=== PATIENT | female | born 1965 | race Hispanic/Latino ===

== ENCOUNTER 2023-11-15 20:01 | Emergency (ER) | payer OTHER, SELFPAY ==
[2023-11-15 20:03] VITALS: BP 136/96
[2023-11-15 20:27] VITALS: BP 138/86
[2023-11-15 20:53] LABS: Glucose - Point of Care 105 mg/dl (70-99)
[2023-11-15 21:09] VITALS: BP 137/78
[2023-11-15 21:19] LABS: % Immature Granulocytes 0.4 % (0-0.5); % Lymphocytes 28.2 % (20.5-51.1); % Monocytes 6.4 % (1.7-9.3); Absolute Basophils 0.1 10^3/uL (0-0.2); Absolute Eosinophils 0.4 10^3/uL (0-0.7); Absolute Lymphocytes 2.6 10^3/uL (1.2-3.4); Absolute Monocytes 0.6 10^3/uL (0.1-0.6); Absolute Neutrophils 5.6 10^3/uL (1.4-6.5); Hematocrit 40.4 % (37.0-47.0); Hemoglobin 14.2 g/dL (12.0-16.0); Mean Corp Hgb Conc. 35.1 g/dL (33.0-37.0); Mean Corpuscular Hgb 28.6 pg (27.0-31.0); Mean Corpuscular Volume 81.5 fL (81.0-99.0); Mean Platelet Volume 11.8 fL (7.4-10.4); Nucleated Red Blood Cells % 0 %; Platelet Count 269 10^3/uL (130-400); Red Blood Cell Count 4.96 10^6/uL (4.20-5.40); Red Cell Dist. Width 13.2 % (11.5-14.5); White Blood Cell Count 9.3 10^3/uL (4.8-10.8)
[2023-11-15 21:34] LABS: ALT (SGPT) 25 U/L (0-35); AST (SGOT) 32 U/L (14-36); Albumin 4.7 g/dl (3.5-5.0); Alkaline Phosphatase 113 U/L (38-126); Blood Urea Nitrogen 15 mg/dl (7-17); Calcium 9.7 mg/dl (8.4-10.2); Carbon Dioxide 24 mmol/L (22-30); Chloride 102 mmol/L (98-107); Glucose 109 mg/dl (70-99); Potassium 4.5 mmol/L (3.5-5.1); Sodium 134 mmol/L (135-145); Total Protein 7.5 g/dl (6.3-8.2); eGFR > 60.00
--- NOTE | 2023-11-15 21:43 | ED.GENMED ---
History of Present Illness
General
Chief Complaint: Visual Problem
Source: patient
Exam Limitations: none
Time Seen by Provider: 11/15/23 21:04
Nursing documentation reviewed up to this point in time: agreed with
Travel History
Have you had any contact with someone who has COVID-19?: No
Do you have any symptoms of coronavirus? Fever > 100 degrees, chills, cough, shortness of breath, sore throat, loss of taste or smell, muscle aches, or headache?: No
History of Present Illness
History of Present Illness:
58-year-old female hypertensive goes to obesity clinic, recently started on metformin last day afterward she had fatigue and swollen legs, which improved that she had a headache, today while driving she saw black nearly lost her vision
lasted about an hour was in both eyes tells me she was on the highway driving in [place] she was able to drive to work although she was 20 minutes late she notes feeling better, no slurred speech no arm or leg weakness no nausea vomiting no chest
pain, recently told that she was a diabetic thus metformin was started, she did not eat much today just today-just 1 egg for breakfast and another 1 later in the day
Past History
Past History
ED Past Medical History: HTN and Hypercholesterolemia
ED Past Surgical History: Negative Cardiac
Social History
Tobacco: Non-smoker
Alcohol: None
Drug: None
Living: with family
Employment: Employed
Family History
Family History: Other (Noncontributory)
Review of Systems
Review of Systems
All Other Systems: ROS reviewed and negative except as documented in HPI and ROS
Constitutional: Reports fatigue; Denies fever
EENT: Reports no symptoms
Respiratory: Reports no symptoms
Cardiac: Reports no symptoms
ABD/GI: Reports no symptoms
: Reports no symptoms
Musculoskeletal: Reports muscle stiffness
Neurological: Reports headache and other (Vision loss)
Endocrine: Reports no symptoms
Hematologic/Lymphatic: Reports no symptoms
Phy Exam
Physical Exam
Physical Exam:
Physical Exam
General: no apparent distress, not acutely ill
Neck: No jaundice
Heart: s1/s2 regular rate and rhythm, no murmur. equal radial pulses.
Lungs: no acute respiratory distress. clear bilaterally
Abdomen: Nontender
Neuro: alert and oriented. no focal neurological deficits normal finger-nose no pronator drift no visual field cut
Skin: no rash
Psychiatric: well kept. interactive and cooperative
Extremities: no edema. no calf tenderness.
Course
Orders/Labs/Results
Orders:
Orders
11/15/23 20:09
Electrocardiogram (*1) Urgent
Reason for Study: Other
Other Reason for Exam: VISION LOSS
EKG- Treatment ONCE
11/15/23 20:10
Accucheck Once [Bedside Glucose Monitoring-ONCE] As Directed
11/15/23 21:04
CMP [Comprehensive Metabolic Panel] Urgent
Complete Blood Count/With Diff Urgent
Creatine Phosphokinase Urgent
Comment: ADD ON
11/15/23 21:20
CT Head W/o Iv Contrast Urgent
Comment:
Reason For Exam: vision loss
11/15/23 21:29
Add On- LAB Urgent
Tests Added?: cpk
Abnormal Lab Results
11/15/23 11/15/23
20:52 21:04
MPV 11.8 H fL
(7.4-10.4)
Sodium 134 L mmol/L
(135-145)
Creatinine 0.5 L mg/dL
(0.6-1.0)
Glucose 109 H mg/dl
(70-99)
POC Glucose 105 H mg/dl
(70-99)
11/15/23 21:04
11/15/23 21:04
Vital Signs
Initial and Last Documented VS:
Initial Vital Signs
Temp Pulse Resp BP Pulse Ox
98 F 92 22 136/96 98
11/15/23 20:03 11/15/23 20:03 11/15/23 20:03 11/15/23 20:03 11/15/23 20:03
Last Documented Vital Signs
Temp Pulse Resp BP Pulse Ox
98 F 88 21 129/70 95
11/15/23 20:03 11/15/23 22:38 11/15/23 22:38 11/15/23 22:00 11/15/23 22:38
MDM/Problems Addressed
Differential Diagnosis Includes:
Adverse drug reaction hypoglycemia rapid dehydration CVA TIA
MDM/Problems Addressed:
Visual loss, muscle cramp
Chronic conditions affecting care: DM and HTN
Acute Exacerbation and/or Progression of Chronic Illness: DM and HTN
*EKG
Interpreted by ED Provider?: Yes
Interpretation: normal
Comparison EKG: no comparison EKG present
Heart Rate: 78
Rate: normal
Rhythm: sinus
Ischemia: non-specific ST changes
*Junior Assistant Manager Interpretation
Rate: normal
Interpretation: normal
Heart Rate: 78
Rhythm: sinus
*Critical Care Note
Total Time (30-74mins, 75-104mins- exclusive of procedures): Not Applicable
Update Note
Update Note:
Update, patient has nonfocal neurologic exam now symptoms appear to all started after she was started on metformin
? Symptoms could be due to hypoglycemia, EKG is noted will check CT of the head
11:[address] noted labs noted
Will have her hold her metformin until she sees her physicians
ED Attending Note
-
Portions of this chart may have been created with voice recognition software.� Occasional wrong word or��sound alike� substitutions may have occurred due to the inherent limitations of voice recognition software.
Discharge Plan
Departure
Patient Disposition: Home (Routine Discharge)
Date of Disposition: 11/15/23
Time of Disposition: 22:56
Patient with high blood pressure during this ER visit?: No
Condition: Good
Discharge Problem:
Change in vision
Instructions: Type 2 Diabetes (DC)
Prescriptions:
No Action
amlodipine 2.5 MG tablet
2.5 mg PO DAILY
olmesartan 20 MG tablet
20 mg PO DAILY
rosuvastatin 10 MG tablet
10 mg PO QPM
nebivolol 10 MG tablet
10 mg PO DAILY
hydrocodone-acetaminophen 1 TABLET tablet
1 tab PO Q4HPRN PRN (Reason: pain) Qty: 14 0RF
ibuprofen 600 MG tablet
600 mg PO Q6HPRN PRN (Reason: pain) Qty: 20 0RF
Referrals:
Mora Garcia PA-C [Family Provider] - Tomorrow
Activity Restrictions/Additional Instructions:
Call your primary care provider first thing in the morning to arrange follow-up and to
Discuss your symptoms
Stop metformin
Discussed this discussed this with your primary care provider and your obesity physician
Interventions
Interventions:
*Risk Screen - Suicide Last Done: 11/15/23 20:03
*General Assessment Last Done: 11/15/23 21:00
*Neglect/Abuse Screening Last Done: 11/15/23 20:03
ED-Skin Assessment Last Done: 11/15/23 21:00
ED- Pulmonary Assessment Last Done: 11/15/23 21:00
ED- Neurological Assessment Last Done: 11/15/23 21:00
ED-EENT Assessment Last Done: 11/15/23 21:00
ED- Cardiac Assessment Last Done: 11/15/23 21:00
ED Swallowing Screen Last Done: 11/15/23 21:58
[2023-11-15 22:00] VITALS: BP 129/70
[2023-11-15 22:02] LABS: Creatine Phosphokinase 52 U/L (30-135)
[2023-11-15 23:00] VITALS: BP 121/81
[2023-11-15] MEDS: TYLENOL 650 MG PO (23:04)
[2023-11-15] MEDS: ZOFRAN ODT (ORALLY DISINTEGRATING) 4 MG PO (23:05)
[2023-11-15 23:12] LABS: Glucose - Point of Care 124 mg/dl (70-99)
[2023-11-15 23:21] VITALS: BP 128/56
== END 2023-11-15 23:30 | disposition home or self-care (01) ==
LOC: EMR 20:01
PROVIDERS: Emergency Medicine; EMERGENCY PHYSICIAN Emergency Medicine; FAMILY PHYSICIAN Physician Assistant
DX: H53.9 Unspecified visual disturbance (principal); I10 Essential (primary) hypertension; E11.9 Type 2 diabetes mellitus without complications
CPT/HCPCS: 99285; 70450; 80053; 82550; 82962; 85025; 93005

== ENCOUNTER → 2024-01-05 15:45 | Outpatient (REF) | payer OTHER, BC, SELFPAY | LOC: DHCBC HW 15:45 | PROVIDERS: ATTENDING PHYSICIAN Internal Medicine; FAMILY PHYSICIAN Physician Assistant | DX: R55 Syncope and collapse (principal); R94.31 Abnormal electrocardiogram [ECG] [EKG] | CPT/HCPCS: 93306 ==

== ENCOUNTER → 2024-01-06 11:43 | Outpatient (REF) | payer OTHER, BC, SELFPAY | LOC: DHCBC/DCA 11:43 | PROVIDERS: ATTENDING PHYSICIAN Internal Medicine; FAMILY PHYSICIAN Physician Assistant | DX: R94.31 Abnormal electrocardiogram [ECG] [EKG] (principal) | CPT/HCPCS: 78452; 93017; A9500; J2785 ==

== ENCOUNTER → 2024-01-07 10:02 | Outpatient (REF) | payer OTHER, BC, SELFPAY | LOC: RCS 10:02 | PROVIDERS: ATTENDING PHYSICIAN Internal Medicine; FAMILY PHYSICIAN Physician Assistant | DX: R55 Syncope and collapse (principal) | CPT/HCPCS: 93225; 93226 ==

== ENCOUNTER → 2024-10-31 13:00 | Outpatient (REF) | payer OTHER, BC, SELFPAY ==
[2024-10-31 14:54] LABS: Erythrocyte Sed Rate 20 mm/hour (0-20)
== END ==
LOC: REG 13:00
PROVIDERS: ATTENDING PHYSICIAN Physician Assistant Surgical; FAMILY PHYSICIAN Physician Assistant
DX: M25.561 Pain in right knee (principal)
CPT/HCPCS: 36415; 85652; 86140

== ENCOUNTER → 2024-11-09 10:10 | Outpatient (REF) | payer OTHER, BC, SELFPAY | LOC: RAD 10:10 | PROVIDERS: ATTENDING PHYSICIAN Physician Assistant Surgical; FAMILY PHYSICIAN Physician Assistant | DX: M25.561 Pain in right knee (principal) | CPT/HCPCS: 78315; A9503 ==

== ENCOUNTER 2025-01-02 18:40 | Outpatient (RCR) | payer OTHER, BC, SELFPAY | END 2025-01-02 23:59 | disposition home or self-care (01) | LOC: RPT 18:40 | PROVIDERS: ATTENDING PHYSICIAN Physician Assistant Surgical; FAMILY PHYSICIAN Physician Assistant | DX: M25.552 Pain in left hip (principal); M25.562 Pain in left knee; M17.11 Unilateral primary osteoarthritis, right knee; Z73.6 Limitation of activities due to disability; R26.2 Difficulty in walking, not elsewhere classified; M62.81 Muscle weakness (generalized); M25.561 Pain in right knee; R26.89 Other abnormalities of gait and mobility; Z96.652 Presence of left artificial knee joint | CPT/HCPCS: 97110; 97162 ==

== ENCOUNTER 2025-05-22 05:21 | Emergency (ER) | payer OTHER, BC, SELFPAY ==
[2025-05-22 05:26] VITALS: BP 113/74
[2025-05-22 05:59] VITALS: BMI 30.7
--- NOTE | 2025-05-22 06:00 | ED.GENMED ---
History of Present Illness
General
Chief Complaint: Abdominal Symptoms
Time Seen by Provider: 05/22/25 05:57
History of Present Illness
History of Present Illness:
PAST MEDICAL HISTORY AND REVIEW OF OLD RECORDS
- The patient has history of high blood pressure, GERD, is a diabetic.
Note:
CHIEF COMPLAINT(S)
Diarrhea and vomiting for three weeks.
HISTORY OF PRESENT ILLNESS
The patient is a 56-year-old female who presents with diarrhea and vomiting, which started three weeks ago. The patient reports that the symptoms began after an increase in the dosage of her medication Monjaro one month ago, prescribed for weight
loss. Initially, the patient experienced constipation before the dosage increase, but subsequently developed diarrhea and vomiting. She initially thought it was food poisoning or a virus. The symptoms have been affecting her ability to work due to
the need for frequent bathroom visits. She describes episodes of feeling warm, sweating, and then feeling improved, only for nausea, stomachache, and diarrhea to return after eating.
The patient reports dehydration and current nausea. She denies any abdominal surgeries and is scheduled for an endoscopy in five days with Dr. Sosa.
EXAM
- General: Well appearing in no significant distress but appears somewhat weak
- HEENT: Moist oral mucosa
- Cardiovascular: No murmurs, normal heart rate, regular rhythm, No chest wall tenderness
- Pulmonary: No respiratory distress, breath sounds are clear and equal
- Abdomen: Soft with no peritoneal signs, no tenderness
- Neurologic: Excellent strength all extremities, no coordination deficits
- Psychiatric: Appropriate mental status, normal insight and judgement
- Extremities: Nontender, no edema, moves all extremities equally
- Skin: No rash, no lesions
PLAN
1. Administer intravenous fluids to address dehydration.
2. Provide antiemetic medication for nausea.
3. Perform blood work to assess the patients condition.
4. Administer Famotidine for symptomatic relief.
5. Re-evaluate the patient following interventions.
DIFFERENTIAL DIAGNOSIS
The Differential Diagnosis includes, in no particular order and is not limited to:
1. Medication side effects from Monjaro.
2. Infectious gastroenteritis.
3. Irritable bowel syndrome.
4. Inflammatory bowel disease.
5. Gastritis or peptic ulcer disease.
6. Pancreatitis.
7. Hyperthyroidism.
8. Food intolerance or allergy.
9. Functional gastrointestinal disorder.
10. Stress-related gastrointestinal symptoms.
RADIOLOGY
- Considered CT of the abdomen pelvis however the patient has no tenderness on exam
LABS
- White count 13.3, hemoglobin normal, chemistries and lipase unremarkable
UPDATE
- I reevaluated the patient at 7:05 AM and the patient feels some improvement after fluids, Zofran, and Pepcid were given. Other than mild leukocytosis, labs are unremarkable and she has no abdominal tenderness on examination. She was given a
second liter of fluid.
Note:
CHIEF COMPLAINT(S)
Diarrhea and vomiting for three weeks.
HISTORY OF PRESENT ILLNESS
The patient is a 56-year-old female who presents with diarrhea and vomiting, which started three weeks ago. The patient reports that the symptoms began after an increase in the dosage of her medication Monjaro one month ago, prescribed for weight
loss. Initially, the patient experienced constipation before the dosage increase, but subsequently developed diarrhea and vomiting. She initially thought it was food poisoning or a virus. The symptoms have been affecting her ability to work due to
the need for frequent bathroom visits. She describes episodes of feeling warm, sweating, and then feeling improved, only for nausea, stomachache, and diarrhea to return after eating.
The patient reports dehydration and current nausea. She denies any abdominal surgeries and is scheduled for an endoscopy in five days with Dr. Sosa. The patient has not had an endoscopy or colonoscopy in the past.
PLAN
1. Administer intravenous fluids to address dehydration.
2. Provide antiemetic medication for nausea.
3. Perform blood work to assess the patients condition.
4. Administer Famotidine for symptomatic relief.
5. Re-evaluate the patient following interventions.
DIFFERENTIAL DIAGNOSIS
The Differential Diagnosis includes, in no particular order and is not limited to:
1. Medication side effects from Monjaro.
2. Infectious gastroenteritis.
3. Irritable bowel syndrome.
4. Inflammatory bowel disease.
5. Gastritis or peptic ulcer disease.
6. Pancreatitis.
7. Hyperthyroidism.
8. Food intolerance or allergy.
9. Functional gastrointestinal disorder.
10. Stress-related gastrointestinal symptoms.
Disposition:
SUMMARY OF ENCOUNTER
The patient, a 56-year-old female, presented to the emergency department with diarrhea and vomiting persisting for three weeks, following an increase in the dosage of a weight loss medication, Monjaro. Her symptoms included episodes of feeling warm,
sweating, nausea, stomachache, and diarrhea that returned after eating. Upon evaluation, laboratory tests showed a slightly elevated white blood cell count, indicating mild leukocytosis, potentially associated with a viral infection or related to
the medication. There were no signs of pancreatitis or liver issues. The patient showed low blood pressure, but it was monitored and observed to trend upwards following administration of IV fluids. Two liters of fluids were ordered to address her
dehydration. Additionally, a prescription for ondansetron (Zofran) was sent to her pharmacy for nausea, and the patient was advised to take famotidine (Pepcid) or similar rajf-umn-sxjxpfi medications for stomach relief.
DISPOSITION
The patient was discharged with outpatient management instructions.
ASSESSMENT
Possible medication side effects from Monjaro, leading to gastrointestinal symptoms. The differential includes mild leukocytosis possibly related to a viral infection.
EMERGENCY TREATMENTS ADMINISTERED
- Two liters of intravenous fluids for dehydration.
PLAN
1. Complete administration of IV fluids for dehydration.
2. Begin prescribed ondansetron (Zofran) for nausea.
3. Consider malf-ozo-cqmnvty famotidine (Pepcid) or similar medication for stomach relief.
4. Reassess blood pressure and overall symptoms improvement upon receiving fluids.
INDEPENDENT REVIEW OF LABS AND INTERPRETATION OF TESTS
My independent review of CBC indicates mild leukocytosis. No signs of pancreatitis or liver dysfunction were observed.
MEDICATION RECONCILIATION
1. Ondansetron (Zofran) prescribed for nausea management.
2. Consider using famotidine (Pepcid) or similar for stomach relief.
MEDICAL DECISION MAKING
- Complexity of Data Reviewed: Chronic conditions affecting care include the patients weight management with Monjaro. Differential diagnoses considered: medication side effects, infectious gastroenteritis, irritable bowel syndrome, inflammatory
bowel disease, gastritis or peptic ulcer disease, pancreatitis, hyperthyroidism, food intolerance or allergy, functional gastrointestinal disorder, stress-related gastrointestinal symptoms.
- Data:
Category 1:
- Labs ordered and reviewed include CBC with noted leukocytosis indicating possible mild viral infection.
- Risk:
Consideration of Admission/Observation: Escalation of care including admission/observation was considered given the complexity and risk of the patients presenting complaint, exam findings, and underlying condition. However, ultimately, the patient
is safe for outpatient management with close follow-up. Reasoning includes reassuring workup with no acute life/organ-threatening processes detected, symptoms are manageable upon reevaluation, and the patient is reliable for follow-up.
DIAGNOSIS
- Possible medication-induced gastrointestinal symptoms, ICD-10: T50.995A (Adverse effect of other drugs, initial encounter).
- Mild leukocytosis, likely stress or viral-related, ICD-10: R16.2 (Leukocytosis, unspecified).
Past History
Past History
ED Past Medical History: HTN and Hypercholesterolemia
ED Past Surgical History: Negative Cardiac
Social History
Tobacco: Non-smoker
Alcohol: None
Drug: None
Living: with family
Employment: Employed
Family History
Family History: Other (Noncontributory)
Phy Exam
Physical Exam
Physical Exam:
See HPI
Course
Orders/Labs/Results
Orders:
Orders
05/22/25 06:01
0.9% Sodium Chloride 1000 ml [Nss] 1,000 ml IV BOLUS
05/22/25 06:05
Basic Metabolic Panel Urgent
Complete Blood Count/With Diff Urgent
Lipase Urgent
05/22/25 06:08
Famotidine [Pepcid] 20 mg IV NOW STA
05/22/25 06:10
Ondansetron Injectable [Zofran] 4 mg .ROUTE .STK-MED ONE
Ondansetron Injectable [Zofran] 4 mg IV NOW STA
05/22/25 07:02
0.9% Sodium Chloride 1000 ml [Nss] 1,000 ml IV BOLUS
Abnormal Lab Results
05/22/25
06:05
WBC 13.3 H 10^3/uL
(4.8-10.8)
MPV 11.3 H fL
(7.4-10.4)
Abs Immat Gran (auto) 0.1 H 10^3/uL
(0-0.05)
Absolute Neuts (auto) 10.7 H 10^3/uL
(1.4-6.5)
Absolute Monos (auto) 1.3 H 10^3/uL
(0.1-0.6)
Immature Gran % 0.8 H %
(0-0.5)
Neutrophils % 80.1 H %
(42.2-75.2)
Lymphocytes % 8.6 L %
(20.5-51.1)
Monocytes % 9.9 H %
(1.7-9.3)
Glucose 105 H mg/dl
(70-99)
05/22/25 06:05
05/22/25 06:05
Vital Signs
Blood pressure: 103/62
Initial and Last Documented VS:
Initial Vital Signs
Temp Pulse Resp BP Pulse Ox
37.5 C 104 20 113/74 95
05/22/25 05:26 05/22/25 05:26 05/22/25 05:26 05/22/25 05:26 05/22/25 05:26
Last Documented Vital Signs
Temp Pulse Resp BP Pulse Ox
37.5 C 92 26 103/62 95
05/22/25 05:26 05/22/25 07:30 05/22/25 07:30 05/22/25 07:26 05/22/25 06:01
*Pulse Oximetry
SaO2: 95
Oxygen Mode of Delivery: Room air
Patient hypoxic: no
*Critical Care Note
Total Time (30-74mins, 75-104mins- exclusive of procedures): Not Applicable
ED Attending Note
-
Portions of this chart may have been created with voice recognition software.� Occasional wrong word or��sound alike� substitutions may have occurred due to the inherent limitations of voice recognition software.
Discharge Plan
Departure
Patient Disposition: Home (Routine Discharge)
Date of Disposition: 05/22/25
Time of Disposition: 07:53
Patient with high blood pressure during this ER visit?: Yes
Discharge Problem:
Adverse drug effect
Instructions: Dehydration in adults - ED discharge instructions
Prescriptions:
New
ondansetron HCl 4 mg tablet
4 mg PO Q8H PRN (Reason: nausea and vomiting) Qty: 12 0RF
No Action
amlodipine 2.5 MG tablet
2.5 mg PO DAILY
olmesartan 20 MG tablet
20 mg PO DAILY
rosuvastatin 10 MG tablet
10 mg PO QPM
nebivolol 10 MG tablet
10 mg PO DAILY
hydrocodone-acetaminophen 1 TABLET tablet
1 tab PO Q4HPRN PRN (Reason: pain) Qty: 14 0RF
ibuprofen 600 MG tablet
600 mg PO Q6HPRN PRN (Reason: pain) Qty: 20 0RF
Referrals:
Mora Garcia PA-C [Family Provider, Internal Medicine]
Activity Restrictions/Additional Instructions:
I suspect that you were dehydrated. We gave you 2 L of IV fluid. Return here if worse or other concerns. Your blood work shows normal kidney function and normal pancreas number. Your white blood cell count is slightly high at 13.3. Talk to your
doctors about resuming Mounjaro. I am sending a prescription for Zofran to your pharmacy. You could also try ersm-ajp-swfadti Pepcid as needed and jnzg-uax-fzodekk omeprazole daily for the next 2 weeks.
Interventions
Interventions:
*Risk Screen - Suicide Last Done: 05/22/25 05:26
*General Assessment Last Done: 05/22/25 05:26
*Neglect/Abuse Screening Last Done: 05/22/25 05:26
*ED- Fall Risk Assessment Last Done: 05/22/25 05:26
*ED COVID-19 Vaccine History Last Done: 05/22/25 05:26
*Nursing Disposition Last Done: 05/22/25 09:15
N[place]-Rzpasd-Qiryiwatqx Assessment Last Done: 05/22/25 06:17
Discharge Date and Time
Discharge Date/Time: 05/22/25 09:16
Print Language: BOTSWANAN
[2025-05-22 06:02] VITALS: BP 100/64
[2025-05-22] MEDS: NSS 1000 IV ×2 (06:08→07:07)
[2025-05-22] MEDS: PEPCID 20 MG IV (06:12)
[2025-05-22] MEDS: ZOFRAN 4 MG IV (06:12)
[2025-05-22 06:31] LABS: Hematocrit 38.1 % (37.0-47.0); Hemoglobin 12.8 g/dL (12.0-16.0); Mean Corp Hgb Conc. 33.6 g/dL (33.0-37.0); Mean Corpuscular Volume 83.0 fL (81.0-99.0); Nucleated Red Blood Cells % 0 %; Platelet Count 312 10^3/uL (130-400); Red Cell Dist. Width 13.8 % (11.5-14.5)
[2025-05-22 07:00] VITALS: BP 103/60
[2025-05-22 07:09] LABS: Blood Urea Nitrogen 10 mg/dl (7-17); Calcium 8.4 mg/dl (8.4-10.2); Carbon Dioxide 22 mmol/L (22-30); Chloride 104 mmol/L (98-107); Estimated Creatinine Clearance 89 ml/min; Glucose 105 mg/dl (70-99); Lipase 83 U/L (23-300); Sodium 137 mmol/L (135-145); eGFR > 60.00
== END 2025-05-22 09:16 | disposition home or self-care (01) ==
LOC: EMR 05:21
PROVIDERS: EMERGENCY PHYSICIAN Emergency Medicine; FAMILY PHYSICIAN Physician Assistant
DX: R19.7 Diarrhea, unspecified (principal); T38.3X5A Adverse effect of insulin and oral hypoglycemic [antidiabetic] drugs, initial encounter; E86.0 Dehydration; D72.829 Elevated white blood cell count, unspecified; E11.9 Type 2 diabetes mellitus without complications; I10 Essential (primary) hypertension; E78.00 Pure hypercholesterolemia, unspecified; K21.9 Gastro-esophageal reflux disease without esophagitis; Z79.85 Long-term (current) use of injectable non-insulin antidiabetic drugs
CPT/HCPCS: 99284; 96374; 96375; 96361 ×2; 80048; 83690; 85025

== ENCOUNTER 2025-05-27 06:26 | Day surgery (SDC) | payer OTHER, BC, SELFPAY | END 2025-05-27 12:52 | disposition home or self-care (01) | LOC: GI 06:26 | PROVIDERS: ATTENDING PHYSICIAN Student in an Organized Health Care Education/Training Program | DX: R12 Heartburn (principal); R14.0 Abdominal distension (gaseous); K22.10 Ulcer of esophagus without bleeding; K44.9 Diaphragmatic hernia without obstruction or gangrene; K25.9 Gastric ulcer, unspecified as acute or chronic, without hemorrhage or perforation; K31.89 Other diseases of stomach and duodenum | CPT/HCPCS: 43239; 88305; 88342 ==

== ENCOUNTER 2025-07-25 18:10 | Emergency (ER) | payer OTHER, BC, SELFPAY ==
[2025-07-25 18:15] VITALS: BP 128/85
[2025-07-25 18:31] LABS: Hematocrit 42.7 % (37.0-47.0); Hemoglobin 13.9 g/dL (12.0-16.0); Mean Corp Hgb Conc. 32.6 g/dL (33.0-37.0); Mean Corpuscular Volume 85.9 fL (81.0-99.0); Nucleated Red Blood Cells % 0 %; Platelet Count 255 10^3/uL (130-400); Red Cell Dist. Width 14.1 % (11.5-14.5)
[2025-07-25 18:52] LABS: ALT (SGPT) 109 U/L (0-35); AST (SGOT) 100 U/L (14-36); Albumin 4.4 g/dl (3.5-5.0); Alkaline Phosphatase 130 U/L (38-126); Blood Urea Nitrogen 22 mg/dl (7-17); Calcium 9.3 mg/dl (8.4-10.2); Carbon Dioxide 27 mmol/L (22-30); Chloride 108 mmol/L (98-107); Glucose 101 mg/dl (70-99); Lipase 404 U/L (23-300); Potassium 4.4 mmol/L (3.5-5.1); Sodium 141 mmol/L (135-145); Total Protein 7.0 g/dl (6.3-8.2); eGFR > 60.00
[2025-07-25 18:55] LABS: Troponin I < 0.012 ng/ml
[2025-07-25 20:05] VITALS: BP 122/72
[2025-07-25 22:08] LABS: Troponin I < 0.012 ng/ml
--- NOTE | 2025-07-25 22:26 | ED.GENMED ---
History of Present Illness
General
Chief Complaint: Chest Pain
Source: patient
Exam Limitations: none
Time Seen by Provider: 07/25/25 19:59
Nursing documentation reviewed up to this point in time: agreed with
History of Present Illness
History of Present Illness:
Patient to ED tonight with complaint of sharp electric like pain from epigastric area through left chest to left shoulder and down left arm. This occured a few times and then resolved but she reports feeling weak and tired. Brought self to ED for
eval. Denies fever/chills, recent illness. No n/v/d. No prior history of same. No SOB
Past History
Past History
ED Past Medical History: HTN and Hypercholesterolemia
ED Past Surgical History: Negative Cardiac
Social History
Tobacco: Non-smoker
Alcohol: None
Drug: None
Living: with family
Employment: Employed
Family History
Family History: Other (Noncontributory)
Review of Systems
Review of Systems
Allergies reviewed?: Yes
All Other Systems: ROS reviewed and negative except as documented in HPI and ROS
Constitutional: Reports no symptoms
EENT: Reports no symptoms
Respiratory: Reports no symptoms
Cardiac: Reports chest pain (sharp left chest pain)
ABD/GI: Reports other (sharp pain from epigastric to left shoulder and arm)
: Reports no symptoms
Musculoskeletal: Reports no symptoms
Skin: Reports no symptoms
Neurological: Reports no symptoms
Psychiatric: Reports no symptoms
Phy Exam
General Physical Exam
General Presentation: well appearing and mild distress
General age: appears stated age
General Skin: warm and dry
General Habitus: normal
General Mental: alert
Cardiovascular Exam
Cardiovascular Exam: regular rate/rhythm and no edema
Pulmonary Exam
Pulmonary Exam: lungs clear and no respiratory distress
Gastrointestinal Exam
Gastrointestinal Exam: normal bowel sounds, non tender and soft
Musculoskeletal Exam
Musculoskeletal Exam: full ROM and neuro vasc intact
Skin Exam
Skin Exam: normal color, warm/dry and no rash
Psychiatric Exam
Psychiatric Exam: normal mood/affect
Scores
Heart Score for Chest Pain Patients
STEMI patient?: Not applicable
Course
Orders/Labs/Results
Orders:
Orders
07/25/25 18:10
EKG [Electrocardiogram (*1)] Urgent
Reason for Study: Chest Pain
07/25/25 18:11
EKG- Treatment ONCE
07/25/25 18:24
Complete Blood Count/With Diff Urgent
Comprehensive Metabolic Panel Urgent
Lipase Urgent
Troponin I Urgent
07/25/25 20:19
US Abdomen Complete/Upper Urgent
Comment:
Reason For Exam: upper abd. pain, elevated LFTs
07/25/25 21:37
Troponin I Urgent
Abnormal Lab Results
07/25/25
18:24
MCHC 32.6 L g/dL
(33.0-37.0)
MPV 11.7 H fL
(7.4-10.4)
Absolute Monos (auto) 0.7 H 10^3/uL
(0.1-0.6)
Chloride 108 H mmol/L
(98-107)
BUN 22 H mg/dl
(7-17)
Glucose 101 H mg/dl
(70-99)
AST 100 H U/L
(14-36)
ALT 109 H U/L
(0-35)
Alkaline Phosphatase 130 H U/L
(38-126)
Lipase 404 H U/L
(23-300)
07/25/25 18:24
07/25/25 18:24
Vital Signs
Initial and Last Documented VS:
Initial Vital Signs
Temp Pulse Resp BP Pulse Ox
98.8 F 84 18 128/85 97
07/25/25 18:15 07/25/25 18:15 07/25/25 18:15 07/25/25 18:15 07/25/25 18:15
Last Documented Vital Signs
Temp Pulse Resp BP Pulse Ox
98.8 F 82 23 122/72 94
07/25/25 18:15 07/25/25 20:30 07/25/25 20:30 07/25/25 22:46 07/25/25 22:30
*Radiology
Radiology exam reviewed: radiology read reviewed
*Pulse Oximetry
SaO2: 94
Oxygen Mode of Delivery: Room air
Patient hypoxic: no
*Critical Care Note
Total Time (30-74mins, 75-104mins- exclusive of procedures): Not Applicable
Update Note
Update Note:
Patient to ED with electric shock type pain - epigastric thru to left shoulder and down left arm. Pain has resolved without interventiion. VSS, she remains afebrile. Labs reviewed, LFT mild elevation noted. US completed - fatty liver identified.
She remains awake and alert, in no distress. WIll discharge home and she willf ollo up with GI. Given instructions on s/s to return to ED and she is agreeable to plan.
ED Attending Note
-
Portions of this chart may have been created with voice recognition software.� Occasional wrong word or��sound alike� substitutions may have occurred due to the inherent limitations of voice recognition software.
Discharge Plan
Departure
Patient Disposition: Home (Routine Discharge)
Date of Disposition: 07/25/25
Time of Disposition: 22:22
Patient with high blood pressure during this ER visit?: No
Condition: Good
Covid-19: Not Applicable
Discharge Problem:
Chest pain
Instructions: Chest Pain PCP Follow Up
Prescriptions:
No Action
amlodipine 2.5 MG tablet
2.5 mg PO DAILY
olmesartan 20 MG tablet
20 mg PO DAILY
rosuvastatin 10 MG tablet
10 mg PO QPM
nebivolol 10 MG tablet
10 mg PO DAILY
hydrocodone-acetaminophen 1 TABLET tablet
1 tab PO Q4HPRN PRN (Reason: pain) Qty: 14 0RF
ibuprofen 600 MG tablet
600 mg PO Q6HPRN PRN (Reason: pain) Qty: 20 0RF
ondansetron HCl 4 mg tablet
4 mg PO Q8H PRN (Reason: nausea and vomiting) Qty: 12 0RF
Referrals:
Mora Garcia PA-C [Family Provider, Internal Medicine] - Follow up in 2-3 days
Joie Wilhelm MD [Active, Gastroenterology] - Call in 1-3 days for appt
Activity Restrictions/Additional Instructions:
As we discussed, mild elevation of your liver enzymes were noted tonight. The ultrasound is showing a fatty liver which may explain the elevation of your liver enzymes. It is important to continue to monitor your liver and the enzymes. Please
follow up with gastroenterology. Return to the emergency department immediately for any changes in/worsening of your symptoms.
Interventions
Interventions:
*Risk Screen - Suicide Last Done: 07/25/25 18:15
*General Assessment Last Done: 07/25/25 18:15
*Neglect/Abuse Screening Last Done: 07/25/25 18:15
*ED- Fall Risk Assessment Last Done: 07/25/25 22:51
*ED COVID-19 Vaccine History Last Done: 07/25/25 18:15
*ED Influenza Vaccine History Last Done: 07/25/25 18:15
*Nursing Disposition Last Done: 07/25/25 22:51
ED- Cardiac Assessment Last Done: 07/25/25 22:46
Discharge Date and Time
Discharge Date/Time: 07/25/25 22:52
Print Language: GAMBIAN
[2025-07-25 22:46] VITALS: BP 122/72
== END 2025-07-25 22:52 | disposition home or self-care (01) ==
LOC: EMR 18:10
PROVIDERS: Nurse Practitioner; EMERGENCY PHYSICIAN Emergency Medicine; FAMILY PHYSICIAN Physician Assistant
DX: R07.9 Chest pain, unspecified (principal); K76.0 Fatty (change of) liver, not elsewhere classified; I10 Essential (primary) hypertension; E78.00 Pure hypercholesterolemia, unspecified
CPT/HCPCS: 99284; 76700; 80053; 83690; 84484; 85025; 93005

== ENCOUNTER 2025-08-02 06:34 | Day surgery (SDC) | payer OTHER, BC, SELFPAY | END 2025-08-02 15:57 | disposition home or self-care (01) | LOC: GI 06:34 | PROVIDERS: ATTENDING PHYSICIAN Student in an Organized Health Care Education/Training Program; FAMILY PHYSICIAN Physician Assistant | DX: Z12.11 Encounter for screening for malignant neoplasm of colon (principal); R19.4 Change in bowel habit; K57.30 Diverticulosis of large intestine without perforation or abscess without bleeding; K44.9 Diaphragmatic hernia without obstruction or gangrene; K31.89 Other diseases of stomach and duodenum; K20.90 Esophagitis, unspecified without bleeding; K62.89 Other specified diseases of anus and rectum; Z86.0100 Personal history of colon polyps, unspecified | CPT/HCPCS: 45380; 43239; 88305 ==